=== PATIENT | female | born 1990 | race African-American/Black ===

== ENCOUNTER 2017-09-19 10:55 | Emergency (ER) | payer MEDICAID, OTHER ==
[~2017-09-19] VITALS: Ht 167.6 cm; Wt 64.0 kg
[2017-09-19 10:57] VITALS: BP 120/78
== END 2017-09-19 11:42 | disposition home or self-care (01) ==
LOC: ED 11:15
DX: K08.89 Other specified disorders of teeth and supporting structures (principal)
CPT/HCPCS: 99283